=== PATIENT | female | born 1990 | race Caucasian/White ===

== ENCOUNTER 2019-06-08 23:30 | Inpatient (IN) | payer OTHER ==
[2019-06-09 00:15] LABS: #Eosinphils 0.1 thou/uL (0.0-0.7); #Monocytes 0.6 thou/uL (0.11-0.59); #Neutrophils 8.7 thou/uL (1.40-6.50); %Basophils 0.1 % (0.0-1.0); %Eosinophils 1.2 % (0.0-10.0); %Lymphocytes 17.4 % (21.0-51.0); %Neutrophils 76.3 % (42.0-75.0); Hemoglobin 12.6 g/dL (12.0-16.0); Mean Corpuscular HGB CONC 33.8 g/dL (32.0-36.0); Mean Corpuscular Hemoglobin 27.2 pg (27.0-31.0); Mean Corpuscular Volume 80.3 fL (78.0-98.0); Mean Platelet Volume 7.2 fL (7.4-10.4); Platelet Count 345 thou/uL (130-400); RBC Distribution Width 11.8 % (11.5-14.5); Red Blood Cell (RBC) Count 4.64 mill/uL (4.20-5.40); White Blood Cell (WBC) Count 11.4 thou/uL (4.8-10.8)
[2019-06-09 00:19] LABS: Bacteria/HPF None Seen HPF (None Seen); Bilirubin Negative (Negative); Blood, Urine Negative (Negative); Clarity Clear (Clear); Glucose, Urine (Dipstick) Normal (Negative); Leukocyte 250 Leu/uL (Negative); Nitrite Negative (Negative); Protein, Urine (Dipstick) Negative (Neg-Trace); RBC/HPF 0-3 HPF (0-3); Squamous Epithelial 0-3 HPF (0-3); Urobilinogen Normal mg/dL (Less than 2)
[2019-06-09 00:27] LABS: BHCG - Serum Negative (NEGATIVE); Pregs Control Background? CLEAR/WHITE (CLR/WHITE); Pregs Control Bar Appear? YES (CONTROL BAR)
[2019-06-09 00:37] LABS: ALT (SGPT) 53 U/L (8-55); AST (SGOT) 39 U/L (5-34); Albumin 4.2 g/dL (3.5-5.0); Alkaline Phosphatase 61 U/L (40-150); Anion Gap 11 mmol/L (10-20); BUN (Urea Nitrogen) 12 mg/dL (7.0-18.7); Bilirubin, Total 0.3 mg/dL (0.2-1.2); Calc. Creatinine Clearance 0 mL/min (70-130); Calcium 9.4 mg/dL (7.8-10.44); Carbon Dioxide 25 mmol/L (22-29); Chloride 103 mmol/L (98-107); Estimated GFR-MDRD Greater than 90; Globulin 3.3 g/dL (2.4-3.5); Glucose 98 mg/dL (70-105); Lipase 20 U/L (8-78); Potassium 3.8 mmol/L (3.5-5.1); Protein, Total 7.5 g/dL (6.0-8.3); Sodium 135 mmol/L (136-145)
[2019-06-09] MEDS ORDERED: Morphine 4 MG/ML VIAL ONE (00:55)
[2019-06-09] MEDS ORDERED: MEROPENEM 1 GM/50 ML 1 GM in Premix Bag 1 BAG IVPB SCH ×2 (01:30→10:00)
[2019-06-09 02:33] VITALS: BMI 28.5
[2019-06-09] MEDS ORDERED: Sodium Chloride 0.9% 1,000 ML IV SCH (02:43)
[2019-06-09] MEDS ORDERED: Ondansetron PF 4 MG/2 ML Vial IVP PRN (02:43)
[2019-06-09] MEDS ORDERED: Ondansetron ODT 4 MG TAB SL PRN (02:43)
[2019-06-09] MEDS ORDERED: Morphine 2 MG/ML SYRINGE SLOW IVP PRN ×2 (02:45→12:28)
--- NOTE | 2019-06-09 08:29 | ULT ---
PRELIMINARY REPORT/[facility]/EMERGENCY AFTER HOURS PROCEDURE: EXAM: US Abdomen Limited, Right Upper Quadrant EXAM DATE/TIME: 06/09/2019 12:03 AM CLINICAL HISTORY: 29 years old, female; Other: Ruq pain, n/v TECHNIQUE: Imaging protocol: Real-time ultrasound of the abdomen with image documentation. Examination was focus ed on the right upper quadrant. COMPARISON: No relevant prior studies available. FINDINGS: Liver: Normal. No masses. Gallbladder: There are echogenic calculi in the gallbladder lumen consistent with cholelithiasis and the gallbladder is partly contracted with associated borderline wall thickening measuring 3.2 mm and there was a positive sonographic Lyon sign and therefore suspicious for acute cholecystitis. Common bile duct: Normal. No stones. No dilation. Pancreas: Visualized pancreas is unremarkable. Right kidney: Normal. No mass. No hydronephrosis. IMPRESSION: There are echogenic calculi in the gallbladder lumen consistent with cholelithiasis and the gallbladd er is partly contracted with associated borderline wall thickening measuring 3.2 mm and there was a p ositive sonographic Lyon sign and therefore suspicious for acute cholecystitis. Thank you for allowing us to participate in the care of your patient. Dictated and Authenticated by: Ryan Kendall MD 06/09/2019 1:06 AM Central Time ([place] & [place]) FINAL REPORT RIGHT UPPER QUADRANT ULTRASOUND: Date: 06/08/19 HISTORY: Pain. COMPARISON: None. FINDINGS: Echogenic material in the lumen of the gallbladder, compatible with gallstones. Gallbladder is contra cted. Gallbladder wall is 0.3 cm in diameter. No significant pericholecystic fluid. Watch Adjuster repor ts a positive Lyon's sign. With regard to the right kidney, questionable trace hydronephrosis. Common bile duct diameter is 0.4 cm. Visualized hepatic parenchyma and pancreas are unremarkable. IMPRESSION: This report is in agreement with the preliminary report by Aaron. There is sonographic evidence of cho lelithiasis, along with a positive Lyon's sign. Correlate clinically for acute cholecystitis. POS: [facility]
[2019-06-09] MEDS ORDERED: Meropenem 1 GM in Sodium Chloride 0.9% 100 ML IVPB SCH (10:00)
[2019-06-09] MEDS ORDERED: Fentanyl 100 MCG/2 ML VIAL ONE (11:15)
[2019-06-09] MEDS ORDERED: HYDROmorphone 2 MG/ML VIAL ONE (11:15)
[2019-06-09] MEDS ORDERED: Bupivacaine HCl 0.5%/Epinephrine 1:200,000/PF 30 ml Vial ONE (11:25)
[2019-06-09] MEDS ORDERED: Morphine 4 MG/ML VIAL SLOW IVP PRN (12:28)
[2019-06-09] MEDS ORDERED: hydrALAZINE 20 MG/ML VIAL SLOW IVP PRN (12:28)
[2019-06-09] MEDS ORDERED: Calcium Carbonate 500 MG ChewTAB PO PRN (12:28)
[2019-06-09] MEDS ORDERED: Dextrose 50% Abboject 50 ML SYRINGE SLOW IVP PRN (12:28)
[2019-06-09] MEDS ORDERED: Dextrose 5% in Water 1,000 ML IV PRN (12:28)
[2019-06-09] MEDS ORDERED: Promethazine HCl 25 MG/ML VIAL IM PRN ×2 (12:28→12:41)
[2019-06-09] MEDS ORDERED: Mag-Al 1200 mg/1200 mg/30 ML UDCUP PO PRN (12:28)
[2019-06-09] MEDS ORDERED: HYDROcodone/Acetaminophen 10/325 mg Tablet PO PRN ×2 (12:28)
[2019-06-09] MEDS ORDERED: Ondansetron HCl/PF 4 MG/2 ML Vial IVP PRN (12:41)
[2019-06-09] MEDS ORDERED: Promethazine HCl 25 MG/ML VIAL SLOW IVP PRN (12:41)
[2019-06-09] MEDS ORDERED: Morphine Sulfate 2 MG/ML SYRINGE SLOW IVP PRN (12:41)
[2019-06-09] MEDS ORDERED: PACU-Morphine 4MG/ML VIAL SLOW IVP PRN (12:41)
[2019-06-09] MEDS ORDERED: Meperidine HCl/PF 25 MG/ML VIAL SLOW IVP PRN (12:41)
[2019-06-09] MEDS: Sodium Chloride 0.9% 1,000 ML IV SCH ×3 (14:20→23:03)
[2019-06-09] MEDS: cefOXitin Sodium/Dextrose,Iso 2 GM in Premix Bag 1 BAG IVPB SCH ×2 (14:42→21:13)
--- NOTE | 2019-06-09 15:36 | HP ---
CHIEF COMPLAINT: Right upper quadrant abdominal pain. HISTORY OF PRESENT ILLNESS: The patient is a 29-year-old female with a two-month history of right upper quadrant pain, intermittent, but became constant, much more severe last night, associated with nausea and vomiting. She denies fevers or chills. PAST MEDICAL HISTORY: Otherwise healthy. PAST SURGICAL HISTORY: Bilateral tubal ligation. MEDICATIONS: No medications. ALLERGIES: NO KNOWN DRUG ALLERGIES. SOCIAL HISTORY: She is single. She is incarcerated. No tobacco. No alcohol. FAMILY HISTORY: Noncontributory. PHYSICAL EXAMINATION: VITAL SIGNS: Temperature 98, pulse 73, and blood pressure 101/65. GENERAL: Well-developed, well-nourished female, lying still. HEENT: No jaundice. LUNGS: Clear. HEART: Regular rate and rhythm. ABDOMEN: Very tender in the right upper quadrant with a positive Lyon sign. EXTREMITIES: Unremarkable. LABORATORY DATA: Her white count is 11.4, H and H 12 and 37, and platelet count 345. Electrolytes are fine. Her ultrasound shows acute cholecystitis. ASSESSMENT: Acute cholecystitis. PLAN: Laparoscopic cholecystectomy. CONSENT: I have discussed planned procedure as well as risk of bleeding, infection, injury to bile duct, injury to bowel, and need to open. She understands and gives informed consent. Job ID: [id number]
[2019-06-09] MEDS: Ketorolac Tromethamine 30 MG/ML VIAL IVP SCH ×2 (17:56→23:02)
[2019-06-09] MEDS: Ondansetron PF 4 MG/2 ML Vial IVP PRN (19:12)
[2019-06-09] MEDS: Famotidine 20 MG TAB PO SCH (19:51)
[2019-06-09] MEDS: Famotidine/PF 20 mg/2ml Vial SLOW IVP SCH (19:52)
[2019-06-10 05:00] LABS: #Basophils 0.1 thou/uL (0.0-0.2); #Lymphocytes 1.6 thou/uL (1.20-3.40); #Monocytes 0.9 thou/uL (0.11-0.59); #Neutrophils 12.1 thou/uL (1.40-6.50); %Basophils 0.7 % (0.0-1.0); %Eosinophils 0.1 % (0.0-10.0); %Lymphocytes 10.5 % (21.0-51.0); %Neutrophils 82.7 % (42.0-75.0); Hemoglobin 11.5 g/dL (12.0-16.0); Mean Corpuscular HGB CONC 33.2 g/dL (32.0-36.0); Mean Corpuscular Hemoglobin 27.3 pg (27.0-31.0); Mean Corpuscular Volume 82.2 fL (78.0-98.0); Mean Platelet Volume 7.8 fL (7.4-10.4); Platelet Count 299 thou/uL (130-400); RBC Distribution Width 11.8 % (11.5-14.5); Red Blood Cell (RBC) Count 4.23 mill/uL (4.20-5.40); White Blood Cell (WBC) Count 14.7 thou/uL (4.8-10.8)
[2019-06-10 05:16] LABS: ALT (SGPT) 104 U/L (8-55); AST (SGOT) 54 U/L (5-34); Albumin 3.5 g/dL (3.5-5.0); Alkaline Phosphatase 54 U/L (40-150); Anion Gap 11 mmol/L (10-20); BUN (Urea Nitrogen) 7 mg/dL (7.0-18.7); Bilirubin, Total 0.4 mg/dL (0.2-1.2); Calc. Creatinine Clearance 136 mL/min (70-130); Calcium 8.8 mg/dL (7.8-10.44); Carbon Dioxide 22 mmol/L (22-29); Chloride 108 mmol/L (98-107); Estimated GFR-MDRD Greater than 90; Globulin 2.9 g/dL (2.4-3.5); Glucose 107 mg/dL (70-105); Potassium 4.5 mmol/L (3.5-5.1); Protein, Total 6.4 g/dL (6.0-8.3); Sodium 136 mmol/L (136-145)
[2019-06-10] MEDS: cefOXitin Sodium/Dextrose,Iso 2 GM in Premix Bag 1 BAG IVPB SCH (06:04)
[2019-06-10] MEDS: Ketorolac Tromethamine 30 MG/ML VIAL IVP SCH ×3 (06:04→18:04)
[2019-06-10] MEDS: Famotidine/PF 20 mg/2ml Vial SLOW IVP SCH ×2 (08:44→20:10)
[2019-06-10] MEDS: Enoxaparin Sodium 40 MG/0.4 ML SYRINGE SC SCH (08:46)
[2019-06-10] MEDS: Sodium Chloride 0.9% 1,000 ML IV SCH ×2 (08:48→20:08)
[2019-06-10] MEDS: Famotidine 20 MG TAB PO SCH ×2 (08:49→20:09)
--- NOTE | 2019-06-10 10:34 | PRG ---
DATE OF SERVICE: 06/10/2019 SUBJECTIVE: The patient states she is feeling a little bit better, but she had a rough night. She vomited. Still has quite a bit of pain. It is a little bit better. She has been able to keep down some full liquids this morning. OBJECTIVE: VITAL SIGNS: On examination, temperature 99, pulse 81, blood pressure 99/64. GENERAL: She looks good. There is a little bit of ecchymosis versus erythema beneath the umbilical incision, but does look good. LABORATORY DATA: Her white count is 14, hemoglobin and hematocrit are 11 and 34, platelet count 299. She has a little bit of elevated glucose at 107. ALT and AST are slightly elevated. Bilirubin is normal. ASSESSMENT: Acute cholecystitis. PLAN: Continue antibiotics. Ambulate. Job ID: [id number]
[2019-06-10] MEDS: Piperacillin/Tazobactam 3.375 GM in Sodium Chloride 0.9% 100 ML IVPB SCH ×2 (11:53→18:03)
[2019-06-10] MEDS: Ondansetron PF 4 MG/2 ML Vial IVP PRN (21:22)
--- NOTE | 2019-06-10 22:56 | OP ---
DATE OF PROCEDURE: 06/09/2019 PREOPERATIVE DIAGNOSIS: Acute cholecystitis. PROCEDURE PERFORMED: Laparoscopic cholecystectomy. INDICATIONS: A 29-year-old female, presented with severe right upper quadrant pain and leukocytosis. Ultrasound showed gallstones, thickened wall, and a positive Lyon sign. FINDINGS: Distended gallbladder. No obvious ductal dilatation. DESCRIPTION OF PROCEDURE: After informed consent was obtained, the patient was taken to the operating room and given general endotracheal anesthesia, placed in the supine position. Abdomen was prepped and draped in usual fashion. Local anesthesia was infiltrated subcutaneously and deep. Subumbilical incision was performed. Subcu divided sharply. The fascia was grasped and 2 stay sutures of 0 Vicryl placed in each side of midline. Midline incised. Digital palpation revealed no local adhesions. A blunt 12 mm trocar inserted. Pneumoperitoneum was created to a pressure of 15 mmHg. A 0-degree laparoscope was inserted under direct vision. Three 5 mm ports were placed subcostally. The gallbladder was grasped and advanced superiorly. Peritoneum lysed distally to reveal the cystic duct and artery in critical view. The artery and duct were triply ligated with hemoclips and divided. The gallbladder removed from its fossa utilizing electrocautery, removed from the abdomen through the umbilical port. Hemostasis assured. Trocars and retractors removed. The fascia closed with interrupted 2-0 Vicryl sutures. Skin closed with interrupted 4-0 Monocryl. Dermabond applied. The patient tolerated the procedure well, transferred to Recovery in good condition. Sponge and needle count verified, correct x2. Job ID: [id number]
[2019-06-11] MEDS: Piperacillin/Tazobactam 3.375 GM in Sodium Chloride 0.9% 100 ML IVPB SCH ×3 (00:14→11:41)
[2019-06-11] MEDS: Ketorolac Tromethamine 30 MG/ML VIAL IVP SCH ×3 (00:19→11:41)
[2019-06-11] MEDS: Ondansetron PF 4 MG/2 ML Vial IVP PRN (03:24)
[2019-06-11] MEDS: Sodium Chloride 0.9% 1,000 ML IV SCH (04:58)
[2019-06-11 05:18] LABS: #Lymphocytes 1.7 thou/uL (1.20-3.40); #Monocytes 0.5 thou/uL (0.11-0.59); #Neutrophils 2.4 thou/uL (1.40-6.50); %Basophils 0.6 % (0.0-1.0); %Lymphocytes 37.1 % (21.0-51.0); %Monocytes 10.3 % (0.0-10.0); Hemoglobin 10.6 g/dL (12.0-16.0); Mean Corpuscular HGB CONC 33.1 g/dL (32.0-36.0); Mean Corpuscular Hemoglobin 27.8 pg (27.0-31.0); Mean Corpuscular Volume 83.9 fL (78.0-98.0); Mean Platelet Volume 7.8 fL (7.4-10.4); Platelet Count 226 thou/uL (130-400); RBC Distribution Width 11.9 % (11.5-14.5); Red Blood Cell (RBC) Count 3.82 mill/uL (4.20-5.40); White Blood Cell (WBC) Count 4.6 thou/uL (4.8-10.8)
[2019-06-11] MEDS ORDERED: Magnesium Citrate 300 ML BOT PO SCH (08:30)
[2019-06-11] MEDS: Famotidine/PF 20 mg/2ml Vial SLOW IVP SCH (09:11)
[2019-06-11] MEDS: Famotidine 20 MG TAB PO SCH (09:11)
[2019-06-11] MEDS ORDERED: Enoxaparin Sodium 40 MG/0.4 ML SYRINGE SC SCH (09:15)
[2019-06-11] MEDS: Enoxaparin Sodium 40 MG/0.4 ML SYRINGE SC SCH (09:48)
--- NOTE | 2019-06-11 10:09 | DIS ---
DATE OF ADMISSION: 06/09/2019 DATE OF DISCHARGE: 06/11/2019 DISCHARGE DIAGNOSIS: Acute cholecystitis. PROCEDURE DURING ADMISSION: Laparoscopic cholecystectomy. HOSPITAL COURSE: The patient was admitted. She was given IV antibiotics, taken to the operating room, where she underwent a laparoscopic cholecystectomy. Postoperatively, she has done well. Pain is well controlled. She has had some postop constipation due to narcotics. She is given some magnesium citrate for that. She is afebrile. Discharged on Tylenol with codeine and Zofran. She will follow up with me in 2 weeks. Job ID: [id number]
[2019-06-11 11:18] VITALS: BP 132/89; TEMP 99
[2019-06-12] MEDS ORDERED: Enoxaparin Sodium 40 MG/0.4 ML SYRINGE SC SCH (09:00)
== END 2019-06-11 12:11 | disposition home or self-care (01) | DRG 419 ==
LOC: ERS 23:30 → OBSVTOIN 06-09 02:03 → SURG A 06-09 02:03
PROVIDERS: ADMIT Surgery; ATTEND Surgery
PROC: 0FT44ZZ Resection of Gallbladder, Percutaneous Endoscopic Approach (ICD-10-PCS; principal; 2019-06-09)
DX: K80.00 Calculus of gallbladder with acute cholecystitis without obstruction (principal); K59.03 Drug induced constipation; T40.605A Adverse effect of unspecified narcotics, initial encounter; Z98.51 Tubal ligation status
CPT/HCPCS: 36415; 76705; 80053; 81003; 81015; 83690; 84703; 85025; 88304; 93005; 96361; 96365; 96375; J0670; J0694; J1170; J1650; J1885; J2185; J2270; J2405; J2543; J3010; J3490; S0028

== ENCOUNTER 2019-06-14 23:09 | Inpatient (IN) | payer OTHER ==
[2019-06-14] MEDS ORDERED: Ketorolac Tromethamine 30 MG/ML VIAL ONE (23:54)
[2019-06-14] MEDS ORDERED: Ondansetron PF 4 MG/2 ML Vial ONE (23:54)
[2019-06-14 23:56] LABS: #Eosinphils 0.1 thou/uL (0.0-0.7); #Lymphocytes 1.5 thou/uL (1.20-3.40); #Monocytes 0.7 thou/uL (0.11-0.59); #Neutrophils 6.6 thou/uL (1.40-6.50); %Basophils 0.4 % (0.0-1.0); %Eosinophils 0.8 % (0.0-10.0); %Lymphocytes 16.6 % (21.0-51.0); %Monocytes 8.2 % (0.0-10.0); %Neutrophils 74.1 % (42.0-75.0); Hemoglobin 11.9 g/dL (12.0-16.0); Mean Corpuscular HGB CONC 32.5 g/dL (32.0-36.0); Mean Corpuscular Volume 83.2 fL (78.0-98.0); Mean Platelet Volume 7.6 fL (7.4-10.4); Platelet Count 314 thou/uL (130-400); RBC Distribution Width 12.6 % (11.5-14.5); Red Blood Cell (RBC) Count 4.41 mill/uL (4.20-5.40); White Blood Cell (WBC) Count 8.9 thou/uL (4.8-10.8)
[2019-06-15 00:18] LABS: ALT (SGPT) 290 U/L (8-55); AST (SGOT) 132 U/L (5-34); Albumin 3.8 g/dL (3.5-5.0); Alkaline Phosphatase 144 U/L (40-150); Anion Gap 16 mmol/L (10-20); BUN (Urea Nitrogen) 8 mg/dL (7.0-18.7); Bilirubin, Total 4.6 mg/dL (0.2-1.2); Calc. Creatinine Clearance 0 mL/min (70-130); Calcium 9.3 mg/dL (7.8-10.44); Carbon Dioxide 24 mmol/L (22-29); Chloride 102 mmol/L (98-107); Estimated GFR-MDRD 80; Globulin 3.2 g/dL (2.4-3.5); Glucose 93 mg/dL (70-105); Lipase 15 U/L (8-78); Potassium 3.5 mmol/L (3.5-5.1); Sodium 138 mmol/L (136-145)
[2019-06-15 04:30] VITALS: BMI 28.3
[2019-06-15] MEDS ORDERED: Ondansetron ODT 4 MG TAB SL PRN (04:36)
[2019-06-15] MEDS ORDERED: Ondansetron PF 4 MG/2 ML Vial IVP PRN (04:36)
[2019-06-15] MEDS: Lactated Ringer's 1,000 ML IV SCH ×2 (05:10→16:11)
[2019-06-15] MEDS: Morphine 4 MG/ML VIAL SLOW IVP SCH ×3 (05:10→13:05)
[2019-06-15] MEDS: Ketorolac Tromethamine 30 MG/ML VIAL IVP SCH ×2 (06:25→13:02)
--- NOTE | 2019-06-15 07:47 | ULT ---
PRELIMINARY REPORT/[facility]/EMERGENCY AFTER HOURS PROCEDURE: EXAM: US Abdomen Limited, Right Upper Quadrant EXAM DATE/TIME: 06/15/2019 1:11 AM CLINICAL HISTORY: 29 years old, female; Nausea and vomiting; Abdominal pain; Localized; Right upper quadrant (ruq); Sharon or surgery; Surgery date: 3-7 days post-operative; Surgery type: Cholecystectomy TECHNIQUE: Imaging protocol: Real-time ultrasound of the abdomen with image documentation. Examination was focus ed on the right upper quadrant. COMPARISON: US Gallbladder RUQ 06/09/2019 12:03 AM FINDINGS: Liver: Normal. No masses. Gallbladder: Prior cholecystectomy. Common bile duct: Common bile duct is within normal limits at 6-7 mm in a postcholecystectomy patient . Pancreas: Visualized pancreas is unremarkable. Right kidney: Normal. No mass. No hydronephrosis. Intraperitoneal space: Trace free fluid at the gallbladder fossa, nonspecific, likely postoperative. IMPRESSION: Trace free fluid at the gallbladder fossa, nonspecific, likely postoperative. Thank you for allowing us to participate in the care of your patient. Dictated and Authenticated by: Simone Johnson MD 06/15/2019 2:39 AM Central Time ([place] & [place]) FINAL REPORT SONOGRAM RIGHT UPPER QUADRANT PERFORMED ON AN EMERGENCY BASIS: Date: 06/15/19 HISTORY: Right upper quadrant pain. Gallstones. COMPARISON: 06/09/19. IMPRESSION: Gallbladder is now surgically absent. Findings agree with the preliminary report by Dr. Johnson from [facility]. No evidence of acute biliary obstruction. Minimal fluid in the gallbladder fossa from recent arreguin rgery. POS: [facility]
--- NOTE | 2019-06-15 14:09 | HP ---
CHIEF COMPLAINT: Right upper quadrant pain with nausea and vomiting. HISTORY OF PRESENT ILLNESS: This is a 29-year-old female, who was admitted through the emergency room on the June 09, six days ago for severe biliary colic, underwent a laparoscopic cholecystectomy. Postoperative liver function tests were normal, and she was discharged on postoperative day 2. Since discharge, she developed increasing pain in the right upper quadrant and nausea and vomiting, which became very severe. She came to the emergency room, where she was found to have a very elevated bilirubin. PAST MEDICAL HISTORY: Significant for otherwise being healthy. PAST SURGICAL HISTORY: Bilateral tubal ligation, recent lap radha. MEDICATIONS: No medications. ALLERGIES: NO KNOWN DRUG ALLERGIES. SOCIAL HISTORY: She is incarcerated, single. No tobacco or alcohol. FAMILY HISTORY: Noncontributory. PHYSICAL EXAMINATION: VITAL SIGNS: Temperature 98.5, pulse 57, blood pressure 127/84. GENERAL: She is obviously jaundiced. She does not appear to be in any distress. LUNGS: Clear. HEART: Regular rate and rhythm. ABDOMEN: Soft, nondistended. The incisions are healing well. There is a little ecchymosis at the umbilicus. EXTREMITIES: Unremarkable. LABORATORY DATA: White count is 8.9, H and H of 11 and 36, and platelet count is 314. Electrolytes are fine, but her T. bilirubin is 4.6, AST of 132, ALT of 290, alkaline phosphatase is normal at 144. IMAGING STUDIES: She had an ultrasound that showed a small amount of fluid in the gallbladder fossa, but not major. The intra and extrahepatic ducts are normal caliber, not dilated. She underwent HIDA scan and that showed of flow into the gut, no leak, no obstruction. ASSESSMENT: Postoperative elevated bilirubin and nausea and vomiting. PLAN: GI consultation. Job ID: [id number]
[2019-06-15] MEDS: D5 1/2 NS w/20 mEq KCL 1,000 ML IV SCH (16:06)
--- NOTE | 2019-06-15 16:40 | NM ---
HEPATOBILIARY SCAN: HISTORY: A 29-year-old female with abdominal pain, nausea, and vomiting. Recent cholecystectomy. RADIOPHARMACEUTICAL: Technetium 99m mebrofenin 5 millicuries injected intravenously. FINDINGS: There is good tracer extraction by the liver with prompt excretion into the biliary tract and small b owel loops. No tracer extravasation is seen on the earlier delayed images. Absence of filling of th e gallbladder is consistent with recent cholecystectomy. IMPRESSION: No evidence of biliary obstruction or bile leak. POS: [facility]
[2019-06-15] MEDS ORDERED: Morphine 2 MG/ML SYRINGE IVP PRN ×2 (19:30)
[2019-06-15] MEDS ORDERED: Ondansetron PF 4 MG/2 ML Vial SLOW IVP PRN (20:50)
[2019-06-16] MEDS: D5 1/2 NS w/20 mEq KCL 1,000 ML IV SCH ×3 (00:11→17:57)
[2019-06-16 06:33] LABS: ALT (SGPT) 287 U/L (8-55); AST (SGOT) 127 U/L (5-34); Albumin 3.2 g/dL (3.5-5.0); Alkaline Phosphatase 147 U/L (40-150); Bilirubin, Direct 1.2 mg/dL (0.1-0.3); Bilirubin, Total 1.6 mg/dL (0.2-1.2)
[2019-06-16] MEDS ORDERED: Famotidine/PF 20 mg/2ml Vial ONE (08:23)
[2019-06-16] MEDS ORDERED: Ondansetron PF 4 MG/2 ML Vial ONE (08:23)
[2019-06-16] MEDS ORDERED: Scopolamine 1.5 mg/72 hour Patch ONE (08:24)
[2019-06-16] MEDS ORDERED: Indomethacin 50 MG SUPP ONE (08:50)
[2019-06-16] MEDS ORDERED: Iothalamate Meglumine 60% 50 ML VIAL FS ONE (08:50)
[2019-06-16] MEDS ORDERED: Fentanyl 100 MCG/2 ML VIAL ONE (08:51)
--- NOTE | 2019-06-16 10:11 | RAD ---
EXAM: ERCP HISTORY: Gallstones FINDINGS/IMPRESSION: Limited intraoperative fluoroscopic views from an ERCP were submitted for interp retation. Contrast is seen in the common bile duct. No filling defects are appreciated.
[2019-06-16] MEDS ORDERED: Ondansetron HCl/PF 4 MG/2 ML Vial IVP PRN (10:12)
[2019-06-16] MEDS ORDERED: Promethazine HCl 25 MG/ML VIAL IM PRN (10:12)
[2019-06-16] MEDS ORDERED: Promethazine HCl 25 MG/ML VIAL SLOW IVP PRN (10:12)
--- NOTE | 2019-06-16 10:43 | OP ---
DATE OF PROCEDURE: 06/16/2019 OPERATIVE PROCEDURES: 1. Endoscopic retrograde cholangiopancreatography with papillotomy. 2. Endoscopic retrograde cholangiopancreatography with stone extraction with a biliary balloon size 9 to 12 mm. PREOPERATIVE DIAGNOSES: Abdominal pain, abnormal LFTs, possibility of common bile duct stone. POSTOPERATIVE DIAGNOSES: 1. 1 cm in size bile duct stone extracted. 2. Multiple small ulcers in the duodenum. DESCRIPTION OF PROCEDURE: The patient was placed on her left lateral position after she was intubated and given sedation by Anesthesia Department. The patient was initially placed on her back and turned on her left lateral position onto the stomach. A bite block was placed. A Pentax video duodenoscope under direct vision passed down the oropharynx, past GE junction into the stomach and subsequently into the descending duodenum. The patient had multiple ulcerations, which appeared small in the duodenum and also around the duodenal sweep. The papilla appears small. A papillotome was used to cannulate into the common bile duct selectively over a guidewire. Injection of the contrast showed no dilation of the common bile duct. Initially, I could not really see any filling defects. Given abnormal LFTs, I elected to do a papillotomy. A 1-cm size papillotomy was made at 12 o'clock position. Following the papillotomy, the papillotome was switched to a biliary balloon size 9 to 12 mm. The balloon was swept couple of times, but nothing really came out. After third sweep, a 1-cm sized stone extracted. Subsequently, occlusion cholangiogram showed no more filling defects. Also good biliary drainage noted. The balloon and the scope removed. The stomach decompressed. RECOMMENDATIONS: 1. Diet as tolerated. 2. Protonix 40 once a day. 3. Repeat LFTs tomorrow and may consider discharge back tomorrow. Job ID: [id number]
[2019-06-16] MEDS ORDERED: diphenhydrAMINE 50 MG/ML VIAL ONE (11:10)
--- NOTE | 2019-06-16 15:15 | PDOC.GSPN ---
Surgery Progress Note: Subj - Subjective Narrative: Ms. Johnson is a 29 year old female who was admitted yesterday for RUQ pain, N/V, and jaundice following a laparoscopic cholecystectomy 7 days ago. She went for ERCP this morning. She states that she is feeling much better than yesterday and currently reports no nausea or vomiting. Her pain is 5/10 and dull in quality. She is voiding/stooling normally, and is tolerating liquids well. Surgery Progress Note: Obj - Vital signs Vital signs: Vital Signs - Most Recent Temp Pulse Resp BP Pulse Ox 98.1 F 62 16 112/76 97 06/16/19 08:05 06/16/19 08:05 06/16/19 08:05 06/16/19 08:05 06/16/19 08:05 - Physical Exam General: no distress, other (scleral icterus) Cardiovascular: regular rate and rhythm, no murmur Respiratory: clear to auscultation, normal respiratory effort Abdomen: soft, nondistended, positive bowel sounds, tender (diffusely, but more prominent in RUQ) Wound: healing well (incision sites are without erythema, warmth, or drainage) Surgery Progress Note: Results - Labs Result Diagrams: 06/14/19 23:45 06/14/19 23:45 Lab results: Laboratory Results - last 24 hr 06/16/19 05:49 Total Bilirubin 1.6 H Direct Bilirubin 1.2 H AST 127 H ALT 287 H Alkaline Phosphatase 147 Serum Total Protein 6.0 Albumin 3.2 L Bilirubin trending down from yesterday. AST/ALT are elevated by stable. Surgery Progress Note: A/P - Problem (1) Postoperative right upper quadrant abdominal pain Current Visit: Yes Code(s): G89.18 - OTHER ACUTE POSTPROCEDURAL PAIN; R10.11 - RIGHT UPPER QUADRANT PAIN Status: Acute Assessment and Plan: Ms. Johnson is doing well after her ERCP. Plan to advance diet today as tolerated by patient. Plan to switch her from IV morphine to PO toradol if she continues tolerating liquids. Plan to run AM labs to trend bilirubin, AST, and ALT. If patient continues to improve and shows no signs of further postoperative complications, plan to discharge tomorrow. Addendum - Physician - Physician Attestation Date/Time: 06/16/19 1710 I personally performed or re-performed the physical examination and medical decision making. I have verified all student documentation or findings, including history, physical exam and/or medical decision making.
[2019-06-17] MEDS ORDERED: Acetaminophen 500 MG TAB PO PRN (00:35)
--- NOTE | 2019-06-17 00:55 | PRG ---
DATE OF SERVICE: 06/17/2019 SUBJECTIVE: The patient remains on the surgical floor. She is status post ERCP today after admission for elevated liver enzymes two days status post laparoscopic cholecystectomy. ERCP found a 1 cm sized bile duct stone that was extracted, also was noted to have multiple small ulcers in the duodenum. Tonight, the patient is tolerating liquids. Her pain is controlled. She is passing flatus. OBJECTIVE: VITAL SIGNS: Stable. The patient is afebrile. GENERAL: The patient is resting comfortably in bed. She is awake, alert, conversant, and appropriate. ABDOMEN: Soft, flat, nontender with active bowel sounds. The remainder of her exam is unremarkable. ASSESSMENT: 1. Status post laparoscopic cholecystectomy. 2. Elevated transaminitis. 3. Status post ERCP. PLAN: Plan will be to continue supportive care. We will repeat her labs in the morning. Advance her diet as tolerated and the patient will likely be discharged tomorrow. Job ID: [id number]
[2019-06-17] MEDS: D5 1/2 NS w/20 mEq KCL 1,000 ML IV SCH ×2 (02:01→09:45)
[2019-06-17 04:35] LABS: ALT (SGPT) 272 U/L (8-55); AST (SGOT) 84 U/L (5-34); Albumin 3.2 g/dL (3.5-5.0); Alkaline Phosphatase 119 U/L (40-150); Bilirubin, Direct 0.8 mg/dL (0.1-0.3); Lipase 21 U/L (8-78); Protein, Total 5.7 g/dL (6.0-8.3)
[2019-06-17] MEDS ORDERED: Pantoprazole 40 MG GRANULES PACKET PO SCH (09:00)
[2019-06-17] MEDS ORDERED: Famotidine 20 MG TAB PO SCH (09:00)
[2019-06-17 11:43] VITALS: BP 116/77; TEMP 98.4
--- NOTE | 2019-06-17 12:46 | PRG ---
DATE OF SERVICE: 06/17/2019 SUBJECTIVE: This 29-year-old female seen by me 2 days ago because of abdominal pain abnormal LFTs. She underwent ERCP with papillotomy and stone extraction. She has done well overnight. There is no abdominal pain, no nausea, no vomiting. She is tolerating diet. Her lab results are better. Her bilirubin is down to today. The AST down to 84, ALT coming down to 72, alkaline phosphatase down to 119. She has no abdominal pain. No nausea or vomiting. PHYSICAL EXAMINATION: GENERAL: Appears very comfortable. VITAL SIGNS: Stable. CARDIOVASCULAR: Lungs within normal limits. ABDOMEN: Soft. No organomegaly. No tenderness. No masses. Recommend Protonix 40 once a day as she has multiple ulcer in the bulb. We will follow up with Dr. Ryan Walker in the near future. Job ID: [id number]
--- NOTE | 2019-06-18 09:51 | CON ---
DATE OF CONSULTATION: 06/15/2019 REASON FOR CONSULTATION: Abdominal pain and nausea. HISTORY OF PRESENT ILLNESS: Ms. Diana Johnson is a very pleasant 29-year-old Latin-S[place] female with abdominal pain and nausea. The patient the patient came with symptoms of biliary colic last weekend and had laparoscopic cholecystectomy by Dr. Ryan quiroga. Since her last admission, her liver function tests were normal. Intraoperative cholangiogram was not done. . She tells me she is still having abdominal pain, nausea, vomiting since she was discharged. Abdominal pain persists. She also has nausea off and on. No fever. She was brought in because of the above symptoms. Abdominal sonogram shows some mild fluid collection in the gallbladder fossa. Common bile duct of 7 mm. The HIDA scan shows free flow into the duodenum. No bile leak seen. Liver function test completely normal liver function test. On current admission, bilirubin is 4.6, AST is 132, ALT 290, alkaline phosphatase 144. Abdominal pain is cramping in nature, same thing what she had a week ago. No other relevant history. ALLERGIES: NONE. SOCIAL HISTORY: The patient does not smoke or drink alcohol. PAST MEDICAL HISTORY: None. PAST SURGICAL HISTORY: 1. Tubal ligation. 2. Laparoscopic cholecystectomy a week ago. FAMILY HISTORY: Multiple family members have had gallstones including grandmother, sister, and mother, etc. There is no other family history of diabetes. No family history of hypertension. MEDICATIONS: None at the present time. REVIEW OF SYSTEMS: A 10-point systems reviewed. CONSTITUTIONAL: No headache. No seizure disorder. No dizziness. No syncope. ENT: No impaired vision. No diplopia. No hearing loss. No sore throat. No dysphagia. LUNGS: No chronic coughing, hemoptysis, or dyspnea. CARDIOVASCULAR SYSTEM: No chest pain. No palpitation, dyspnea, orthopnea, or PND. GI: See history of present illness. : Unremarkable. Other review of systems unremarkable. PHYSICAL EXAMINATION: GENERAL: She is a very young female, who appears very comfortable. She is in no acute distress. She is jaundiced. VITAL SIGNS: Afebrile. Pulse 83, blood pressure 118/79. She is jaundiced. NECK: Supple. No adenitis or thyromegaly noted. CARDIOVASCULAR SYSTEM: First and second heart sounds heard. LUNGS: Clear to auscultation. ABDOMEN: Soft. Abdomen is mildly tender over the epigastric area. There is no rebound or guarding. No organomegaly or masses. EXTREMITIES: Reveal no edema. LABORATORY DATA: From today shows sodium 138, potassium 3.5, chloride 102, bicarb 24, BUN is 8, creatinine 0.85, bilirubin 4.6, AST 132, ALT 290, alkaline phosphatase 144, bilirubin . CBC; WBC 8900, hemoglobin 11.9, hematocrit 36.7. Platelet count is 314,000, polymorphs 74, lymphocytes 16. Abdominal sonogram shows minimal fluid collection in gallbladder fossa. HIDA scan is negative. CLINICAL IMPRESSION: A 29-year-old female with recent laparoscopic cholecystectomy, comes back for abdominal pain, nausea, and vomiting. Her liver function tests were normal during last admission. Based on the information, I believe she has a recent common bile duct. RECOMMENDATION: ERCP and papillotomy and stone extraction. I had a long talk with Ms. Johnson and explained her about the ERCP procedure, the potential risks and benefits. She was agreeable. I want to start her on a regular diet today and keep her n.p.o. after midnight and plan for ERCP tomorrow. Job ID: [id number]
== END 2019-06-17 11:52 | disposition home or self-care (01) | DRG 445 ==
LOC: ERS 23:09 → SURG B 06-15 04:17
PROVIDERS: ADMIT Surgery; ATTEND Surgery
PROC: 0FC98ZZ Extirpation of Matter from Common Bile Duct, Via Natural or Artificial Opening Endoscopic (ICD-10-PCS; principal; 2019-06-15)
PROC: 0F798ZZ Dilation of Common Bile Duct, Via Natural or Artificial Opening Endoscopic (ICD-10-PCS; 2019-06-15)
DX: K80.50 Calculus of bile duct without cholangitis or cholecystitis without obstruction (principal); R17 Unspecified jaundice; K26.9 Duodenal ulcer, unspecified as acute or chronic, without hemorrhage or perforation; R74.0 Nonspecific elevation of levels of transaminase and lactic acid dehydrogenase [LDH]; E80.7 Disorder of bilirubin metabolism, unspecified; Z98.51 Tubal ligation status; Z90.49 Acquired absence of other specified parts of digestive tract
CPT/HCPCS: 36415; 74330; 76705; 78226; 80053; 80076; 83690; 85025; 96361; 96374; 96375; A9537; J1200; J1610; J1885; J2270; J2405; J3010; S0028